=== PATIENT | male | born 1935 | race Caucasian/White ===

== ENCOUNTER → 2016-11-01 | Outpatient (CLI) | payer OTHER ==
[2010-11-24 07:46] VITALS: BP 123/73
--- NOTE | 2016-11-01 13:03 | DI ---
PA /LATERAL CHEST X-RAY, 11/01/2016 12:25 PM : Clinical History: Upper respiratory infection. Previous Exam: 12/10/2008. There is no acute soft tissue or bony abnormality. Heart size is normal. Lungs are clear. Mediastinal structures are normal. There are no pulmonary nodules. Reading: Normal chest x-ray. There has been no interval change.
== END ==
LOC: MOB RAD 12:26
PROVIDERS: ATTEND Physician Assistant
DX: J06.9 Acute upper respiratory infection, unspecified (principal)
CPT/HCPCS: 71020

== ENCOUNTER 2018-04-25 13:35 | Observation (INO) ==
[2018-04-25] MEDS ORDERED: Sodium Chloride 0.9% 1,000 ML PRIMARY IV ONE ×2 (13:58→14:04)
[2018-04-25] MEDS ORDERED: ONDANSETRON 4 MG/2 ML VIAL IVP ONE ×2 (13:58→14:36)
[2018-04-25] MEDS ORDERED: ONDANSETRON 4 MG/2 ML VIAL ONE (14:04)
[2018-04-25 14:09] LABS: BASOPHILS # (AUTO) 0.01 10*3/UL; BASOPHILS % (AUTO) 0.2 % (0-1); EOSINOPHILS # (AUTO) 0.06 10*3/UL; EOSINOPHILS % (AUTO) 0.9 % (0-8); Hemoglobin [HGB] 9.5 g/dL (14.0-18.0); LYMPHOCYTES # (AUTO) 0.75 10*3/uL; MEAN CORPUSCULAR HEMOGLOBIN 39.9 PG (27-31); MEAN CORPUSCULAR HGB CONC 33.9 g/dL (33-37); MEAN CORPUSCULAR VOLUME 117.6 FL (80-90); MEAN PLATELET VOLUME 11.6 FL (7.4-12.2); NEUTROPHILS # (AUTO) 5.61 10*3/UL; NEUTROPHILS % (AUTO) 84.3 % (50-80); RED BLOOD COUNT 2.38 10^6/uL (4.70-6.10)
[2018-04-25 14:15] LABS: BLOOD UREA NITROGEN 24 mg/dL (7-22)
[2018-04-25 14:33] LABS: PLATELET MORPHOLOGY COMMENT NORMAL MORPHOLOGY (NORM); RBC MORPHOLOGY COMMENT SEE COMMENTS (NORM); WBC MORPHOLOGY COMMENT NORMAL MORPHOLOGY (NORM)
[2018-04-25 14:35] LABS: COLOR,URINE YELLOW (Y); URINE SAMPLE TYPE CATH SPECIMEN
[2018-04-25 14:36] LABS: BILIRUBIN,URINE SMALL (NEG); CLARITY,URINE CLEAR (CLEAR); GLUCOSE, URINE (UA) NEGATIVE (NEG); OCCULT BLOOD,URINE NEGATIVE (NEG); PROTEIN,URINE 30 mg/dl (NEG); RBC,URINE 0-3 /hpf
[2018-04-25 15:01] LABS: LIPASE 49 IU/L (23-300)
--- NOTE | 2018-04-25 16:13 | EKG ---
[address] [address] Measurements Intervals [place] Rate: 62 P: 15 VA: 156 QRS: -6 QRSD: 129 T: 13 QT: 472 QTc: 477 Interpretive Statements SINUS RHYTHM WITH OCCASIONAL SUPRAVENTRICULAR PREMATURE COMPLEXES RIGHT BUNDLE BRANCH BLOCK No previous ECG available for comparison Electronically Signed On 04-25-18 16:31:11 MDT by Parker James [email or web address]
--- NOTE | 2018-04-25 16:24 | DI ---
CT Abdomen/Pelvis W Contrast 04/25/2018 2:38 PM History: vomiting Comparison: CT abdomen/pelvis 06/22/2015. Technique: Imaging was performed with a multi-detector CT scanner. Data acquisition was obtained from the dome of the diaphragm through the pubic symphysis without oral contrast and after the uneventful administration of 75 mL of Isovue intravenous contrast material. Multiplanar reformations were perfo rmed. Findings: There is bibasilar dependent atelectasis. There are multiple bilateral pulmonary nodules in the lower lobes. The largest measures approximately 7 mm. There is no dense consolidation or pleural effusion. Heart size is within normal limits with atheromatous aortic and coronary artery calcificat ions. There are aortic annular calcifications. There are surgical clips in the gallbladder fossa. There is normal CT appearance of the liver, adrena l glands, spleen, kidneys, and pancreas. There is colonic diverticulosis. Focal inflammatory strandin g is noted along the posterior aspect of the colon at the level of the proximal descending colon wher e there is a prominent diverticulum. This raises concern for acute diverticulitis. There is also bord eri thickening of the wall of the incompletely distended colon. There is no free intraperitoneal a ir or fluid. No abdominopelvic lymphadenopathy is present. Vascular structures are intact. There is n o inguinal or abdominal wall hernia. The prostate is enlarged. There is multilevel degenerative disc disease with apex left curvature of the lumbar spine. There is grade 1 anterolisthesis of L4 on L5. Impression: 1. There are findings concerning for acute diverticulitis involving the proximal descending colon. 2. Additionally, there is borderline line thickening of the wall of the incompletely distended colon. Although this could be pseudo-thickening, an infectious, inflammatory, or ischemic etiology can caus e long segment bowel wall thickening. Clinical and laboratory correlation is recommended with followu p to resolution. 3. Multiple bilateral pulmonary nodules, the largest measuring 7 mm. Fleischner Society 2017 guidelin es for management of incidentally detected pulmonary nodules is as follows: Multiple solid lung nodules 6-8 mm: Low risk: CT at 3-6 months, then consider CT at 18-24 months. High risk: CT at 3-6 months, then at 18-24 months.
--- NOTE | 2018-04-25 17:31 | PDOC ---
HPI - History of Present Illness Date of Service: 04/25/18 Time of Service: 17:50 Chief Complaint: Vomiting of one day duration History of Present Illness: This is an 82 years old male with medical history significant for history of memory issues who presented to the hospital with history of vomiting that started today he vomited like 6-7 times he said he was driving back from [place] and had stopped because of the vomiting. He said he had nausea but he denied neck pain. Because of the symptoms he came into the ER. Had a CT of the abdomen done in the ER which showed diverticulitis and also thickening or pseudo -thickening of the colon and he was admitted. Currently he denying pain is denying nausea. His son confirmed the same story. The only thing that he added is that he noticed that his dad appetite seemed to be decreased the last week or so. There is also an episode of worsening confusion last Monday. He think that there is also worsening confusion the last week or 2. The patient himself denied abdominal pain, fever. History is somewhat limited though because of patient memory problem. His nausea seemed to be resolved now. Past Medical History Medical History: 1. Memory issue probably dementia. 2. Vitamin B12 deficiency not clear whether this has been treated or not Surgical History: History of cholecystectomy Family History: Reviewed an Not Pertinent Past Social History: Lives with his in [facility], used to smoke quit many years ago, doesn't drink nor drugs. Still drives. His son has power of ip technology transactions attorney. Tobacco Use: Former Smoker In the Past 12 Months, Have Used or Abuse Any of the Following Substance: None Alcohol Use: None Medication / Allergies Home Medications: Home Medications 3 Medication Instructions Recorded Confirmed Type donepezil 5 mg tablet 5 mg PO QDAY #30 tab 04/17/18 04/25/18 Rx Allergies/Adverse Reactions: Allergies 3 Allergy/AdvReac Type Severity Reaction Status Date / Time No Known Allergies Allergy Verified 04/25/18 13:38 Review of Systems - Review of Systems All Systems: Reviewed & No Additional Complaints Except as Stated Exam - Vitals Vital Signs: Vital Signs Temperature 97.1 F Temperature Source Tympanic Pulse Rate [Pulse Oximeter] 56 Pulse Rate 67 Respiratory Rate 20 Blood Pressure [Right Arm] 127/64 Blood Pressure 104/69 Pulse Ox 98 Oxygen Delivery Method Room Air Height 5 ft 10 in Weight 165 lb 4 oz - General General Appearance: No Acute Distress, Cooperative - Head Head Exam: Normal Inspection - Eye Eye Exam: POSITIVE: Normal Appearance - ENT ENT Exam: POSITIVE: Normal Exam - Neck Neck Exam: Normal Inspection - Respiratory Respiratory Exam: POSITIVE: Clear to Auscultation - Bilaterally - Cardiovascular Cardiovascular Exam: POSITIVE: RRR - GI/Abdominal GI/Abdominal Exam: POSITIVE: Normal Bowel Sounds, Non Tender, Non Distended, Soft, No Organomegaly - Rectal Rectal Exam: POSITIVE: Deferred - External Exam: POSITIVE: Deferred Exam: POSITIVE: Deferred - Extremities Extremities Exam: POSITIVE: Normal Inspection - Back Back Exam: POSITIVE: Normal Inspection - Neurological Neurological Exam: POSITIVE: Alert, CN II-XII Intact, No Facial Droop, Speech Intact / Clear, Moves All Extremities Equally Additional Neurological Exam Details: He need that he is in the hospital could not tell me the name of the hospital or the town that he is in. Did not know the day or the month or the year. He now where he lives. He now the name of his son but he couldn't tell me the name of his grandsons. - Psychiatric Psychiatric Exam: POSITIVE: Normal Affect Results - Labs CBC and BMP: 04/25/18 13:45 04/25/18 13:45 - EKG Data -: EKG Interpreted by Me Rate: Normal EKG Shows Normal: Sinus Rhythm - EKG Data EKG Interpretation: Other (EKG showed sinus rhythm with supraventricular premature beats. There is right bundle branch block) - Imaging Status: Report Reviewed by Me (CT chest: 1. There are findings concerning for acute diverticulitis involving the proximal descending colon. 2. Additionally, there is borderline line thickening of the wall of the incompletely distended colon. Although this could be pseudo-thickening, an infectious, inflammatory, or ischemic etiology can cause long segment bowel wall thickening. Clinical and laboratory correlation is recommended with followup to resolution. 3. Multiple bilateral pulmonary nodules, the largest measuring 7 mm.) Assessment and Plan - Patient Problems (1) Diverticulitis Current Visit: Yes Status: Acute Comment: Will put him on ertapenem. Will put him on IV fluids and a clear liquid diet. Code(s): K57.92 - Diverticulitis of intestine, part unspecified, without perforation or abscess without bleeding (2) Vitamin B 12 deficiency Current Visit: No Status: Chronic Comment: He has vitamin B12 deficiency I am not sure this has been treated. Will Put him on vitamin B12. We'll check Folate level. Code(s): E53.8 - Deficiency of other specified B group vitamins
[2018-04-25] MEDS ORDERED: LIDOCAINE W/ SODIUM BICARB 0.5 ML SYR SUBD PRN (17:34)
[2018-04-25] MEDS ORDERED: DOCUSATE 100 MG CAPSULE PO PRN (17:34)
[2018-04-25] MEDS ORDERED: ONDANSETRON 4 MG/2 ML VIAL IVP PRN (17:34)
[2018-04-25] MEDS ORDERED: CALCIUM CARBONATE 500 MG (TUMS) CHEWABLE TABLET PO PRN (17:34)
[2018-04-25] MEDS ORDERED: ACETAMINOPHEN 325 MG TABLET PO PRN (17:34)
[2018-04-25] MEDS ORDERED: CYANOCOBALAMIN 1000 MCG/1 ML VIAL IM ONE (17:48)
--- NOTE | 2018-04-25 18:02 | PDOC ---
General Adult HPI - General Chief Complaint: Nausea / Vomiting / Diarrhea Stated Complaint: "does not feel well"/vomiting Date Seen by Provider: 04/25/18 Time Seen by Provider: 13:45 Source: POSITIVE: Patient, Other (Son) Exam Limitations: POSITIVE: No limitations Nurse's Notes Reviewed & Considered: Yes - History of Present Illness Initial Comment: The patient is a 82-year-old male. 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 He states he had 5-6 episodes of vomiting prior to coming to the emergency room and states he had to stop at the side of the road to throw up. He states he's not felt very well for several days. Some poorly localized abdominal discomfort. No melena, hematochezia, hematemesis, dysuria or hematuria. He states he thinks she's had an appendectomy. No fevers or chills. His , with whom he lives, has not had some similar symptoms. His has advanced Alzheimer disease. The patient has moderate dementia. Collateral history was obtained through the patient's son. Have you received a tetanus shot in the past 10 years?: Unknown Body Location Affected: REPORTS: Abdomen Timing: REPORTS: Abrupt, Intermittent Duration: <24 hours Severity: Moderate Quality: REPORTS: "Pain" (Mild poorly localized abdominal discomfort; mostly in the left upper abdomen) Context: DENIES: None, Sitting, Standing, Activity, Emotional stress, Coughing, Recent Trauma, Recent Surgery, Sleep, Rest, Lifting, Turning, Bending, Fall, Near Fall, Other Modifying Factors: improves with: Vomiting Similar Symptoms Previously: No Recent Care Received: REPORTS: Denies Any Prior Injuries Related to Current Complaint?: No - Patient Home Medications Home Medications: Home Medications donepezil 5 mg tablet 5 mg PO QDAY #30 tab 04/17/18 - Patient Allergies Allergies/Adverse Reactions: Allergies 3 Allergy/AdvReac Type Severity Reaction Status Date / Time No Known Allergies Allergy Verified 04/25/18 13:38 Past Medical History - heen HEENT History: Denies History Cardiovascular History: Denies History Respiratory History: Denies History Gastrointestinal History: Denies History Genitourinary History: Denies History Endocrine History: Denies History Musculoskeletal History: Denies History Neurological History: Dementia Blood Disorders: Denies History Psychiatric History: Denies History History of Sexually Transmitted Diseases: No Male Reproductive History: Denies History Cancer History: Denies History In Past Year Been Physically Harmed or Verbally Threatened: No History of MDRO: Unknown Tobacco Use: Former Smoker In the Past 12 Months, Have Used or Abuse Any Substance: None Significant Family History: No pertinent family hx Past Medical History Reviewed: Reviewed - No Changes ROS - Limitations ROS Limitations: No Limitations Constitution: REPORTS: Denies Symptoms Cardiovascular: REPORTS: Denies Cardiac Symptoms Respiratory: REPORTS: Denies Resp Symptoms Neurological: REPORTS: Denies Neuro Symptoms Gastrointestinal: REPORTS: Abdominal Pain (Mild vague abdominal discomfort, mostly in the left upper quadrant), Nausea, Vomitting Endocrine: REPORTS: Denies Symptoms Musculoskeletal: REPORTS: Denies MS Symptoms Genitourinary: REPORTS: Denies Symptoms Eyes: REPORTS: Denies Symptoms ENT: REPORTS: Denies Symptoms Skin: REPORTS: Denies Skin Symptoms Lympathic: REPORTS: Denies Lympathic Symptoms Immunologic: POSITIVE: Denies Symptoms Psychiatric: POSITIVE: Denies Psych Symptoms General Adult Exam - General Appearance General Appearance: POSITIVE: Alert, Cooperative, No Acute Distress, No Evidence of Trauma - HEENT HEENT: POSITIVE: Head Inspection Nml, Eyes Inspection Nml, Ears Inspection Nml, Nose Inspection Nml, Oral/Dental Inspect. Nml, Pharynx Inspect. Nml, PERRL, EOMI - Pupils Pupil Size: 3 mm: Bilateral (PERRLA) - Neck Neck: POSITIVE: Normal Inspection, Thyroid Normal - Respiratory Respiratory: POSITIVE: No Respiratory Distress, Breath Sounds Normal, Chest Non- Tender - Cardiovascular Cardiovascular: POSITIVE: Regular Rate & Rhythm, No Murmur, No Gallop, PMI Normal Peripheral Pulses: Radial (R): 2+, Radial (L): 2+ - Abdomen Abdomen: Soft: (All Quadrants), Denies Tenderness: (RLQ), (LUQ), (RUQ), No Splenomegaly: (All Quadrants), No Hepatomegaly: (All Quadrants), No Guarding: ( All Quadrants), No Rebound: (All Quadrants), No Palpable Pulse: (All Quadrants) , No Palpabale Mass: (All Quadrants), No Distention: (All Quadrants), No Rigidity: (All Quadrants), Tenderness Noted: (LLQ) (mild) Additional Abdominal Details: Abdominal examination shows bowel sounds to be active. Patient does express some discomfort on firm deep direct palpation in the left upper quadrant, with no masses, organomegaly or rebound. - Back Back: POSITIVE: Normal Inspection. 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 As Tested, Motor Normal, Sensation Normal Images - Complete Complete: 1 - Mild discomfort on firm direct palpation General Adult Progress - Results Reviewed by me Xrays/CTs/US Reviewed by me: Yes Discussed with Radiologist: Yes Radiology Findings: CT scan abdomen and pelvis with IV contrast read by radiologist as compatible with acute diverticulitis Lab Results Reviewed by Me: Yes Lab Results:: Laboratory Results 3 04/25/18 04/25/18 04/25/18 13:45 13:45 14:05 WBC 6.65 RBC 2.38 L Hgb 9.5 L Hct 28.0 L MCV 117.6 H MCH 39.9 H MCHC 33.9 RDW Std Deviation 66.1 H RDW Coeff of Isaac 16.1 H Plt Count 150 MPV 11.6 Immature Gran % (Auto) 0.3 Neut % (Auto) 84.3 H Lymph % (Auto) 11.3 [place] % (Auto) 3.0 L Eos % (Auto) 0.9 Baso % (Auto) 0.2 Immature Gran # (Auto) 0.02 Neut # (Auto) 5.61 Lymph # (Auto) 0.75 [place] # (Auto) 0.20 L Eos # (Auto) 0.06 Baso # (Auto) 0.01 WBC Morphology Comment Normal morphology Plt Morphology Comment Normal morphology RBC Morph Comment See comments Sodium 140 Potassium 3.9 Chloride 108 Carbon Dioxide 24 Anion Gap 8 BUN 24 H Creatinine 1.2 BUN/Creatinine Ratio 20.00 Glucose 157 H Calculated Osmolality 296.0 H Calcium 8.9 Total Bilirubin 0.8 AST 38 ALT 44 Alkaline Phosphatase 91 Total Protein 7.0 Albumin 4.0 Globulin 3.0 Albumin/Globulin Ratio 1.30 Amylase Lipase Ur Collection Type Cath specimen Urine Color Yellow Urine Clarity Clear Urine pH 5.0 Ur Specific Maxwell 1.026 Urine Protein 30 A Urine Glucose (UA) Negative Urine Ketones 15 Urine Occult Blood Negative Urine Nitrate Negative Urine Bilirubin Small Urine Urobilinogen 1.0 Ur Leukocyte Esterase Negative Urine RBC 0-3 Urine WBC None Ur Squamous Epith Cells None Ur Renal Epithelial Cell None Urine Crystals None Urine Bacteria None Urine Casts None Urine Mucus Moderate Urine Trichomonas None Urine Yeast None Ur Culture Indicated? Culture not set 3 04/25/18 14:37 WBC RBC Hgb Hct MCV MCH MCHC RDW Std Deviation RDW Coeff of Isaac Plt Count MPV Immature Gran % (Auto) Neut % (Auto) Lymph % (Auto) [place] % (Auto) Eos % (Auto) Baso % (Auto) Immature Gran # (Auto) Neut # (Auto) Lymph # (Auto) [place] # (Auto) Eos # (Auto) Baso # (Auto) WBC Morphology Comment Plt Morphology Comment RBC Morph Comment Sodium Potassium Chloride Carbon Dioxide Anion Gap BUN Creatinine BUN/Creatinine Ratio Glucose Calculated Osmolality Calcium Total Bilirubin AST ALT Alkaline Phosphatase Total Protein Albumin Globulin Albumin/Globulin Ratio Amylase 52 Lipase 49 Ur Collection Type Urine Color Urine Clarity Urine pH Ur Specific Maxwell Urine Protein Urine Glucose (UA) Urine Ketones Urine Occult Blood Urine Nitrate Urine Bilirubin Urine Urobilinogen Ur Leukocyte Esterase Urine RBC Urine WBC Ur Squamous Epith Cells Ur Renal Epithelial Cell Urine Crystals Urine Bacteria Urine Casts Urine Mucus Urine Trichomonas Urine Yeast Ur Culture Indicated? CBC and BMP: 04/25/18 13:45 04/25/18 13:45 EKG Interpreted/Reviewed By Me:: Yes (normal) EKG Interpretation:: POSITIVE: Normal Sinus Rhythm, Normal Rate, Normal Intervals, Normal [place], Normal QRS, Normal ST/T - Patient's Progress Pain Medication Addressed: POSITIVE: Patient Refused School/Work Release Addressed: POSITIVE: Not Applicable Re-Examine Time: 16:20 Re-Examine Comment: Patient had one episode of vomiting while in the emergency room. Emesis was checked for blood and it was Hemoccult negative. Patient hydrated with normal saline and given Zofran. Patient feels better on discharge. I discussed options of treatment with the patient and the patient's son. In view of the patient's vomiting and his radiographic diagnosis of diverticulitis, it was decided to admit the patient for further evaluation and treatment. Status: POSITIVE: Improved, Re-Examined Antibiotics Given: No - Consult Consult (If Yes, Name of Consulting MD & Time Called): Yes (Dr. Leyva, hospitalist, [id number]) Consulting MD will see pt:: POSITIVE: [place] Admit Counseled: POSITIVE: Patient, Family (Son and ), RE: Lab Results, RE: Radiology Results, RE: DX, RE: Need for F/U Patient Care Time - Estimated PCT Patient Care Time (In Minutes): 55 Vital Signs - Recent Vital Signs Vital Signs: Vital Signs (Last 8 hours) Temp Pulse Pulse Resp BP BP Pulse Ox 04/25/18 17:16 97.1 F 56 L 20 127/64 98 04/25/18 16:59 97 F 67 18 104/69 96 04/25/18 13:40 96.1 F L 67 22 126/80 98 - VS Reviewed Vital Signs Reviewed: Yes Discharge Clinical Impression: Nausea and vomiting, Diverticulitis Discharge Disposition: Admit to Inpatient Condition: Fair Date Decision to Admit to Inpatient: 04/25/18 Time Decision to Admit to Inpatient: 16:20
[2018-04-25] MEDS: Ertapenem Inj 1 GM in Sodium Chloride 0.9% 100 ML IV SCH (18:11)
[2018-04-25] MEDS: Lactated Ringers 1,000 ML PRIMARY IV SCH (18:12)
[2018-04-25 20:28] VITALS: RESP 18
[2018-04-26 04:15] VITALS: O2SAT 94
[2018-04-26] MEDS: Lactated Ringers 1,000 ML PRIMARY IV SCH (04:17)
[2018-04-26 07:35] VITALS: BP 104/52; TEMP 98.3
[2018-04-26 08:06] LABS: BASOPHILS # (AUTO) 0.02 10*3/UL; BASOPHILS % (AUTO) 0.3 % (0-1); EOSINOPHILS # (AUTO) 0.09 10*3/UL; EOSINOPHILS % (AUTO) 1.4 % (0-8); Hematocrit [HCT] 26.5 % (42.0-52.0); Hemoglobin [HGB] 9.2 g/dL (14.0-18.0); MEAN CORPUSCULAR HEMOGLOBIN 41.1 PG (27-31); MEAN CORPUSCULAR HGB CONC 34.7 g/dL (33-37); MEAN CORPUSCULAR VOLUME 118.3 FL (80-90); MEAN PLATELET VOLUME 11.1 FL (7.4-12.2); MONOCYTES % (AUTO) 4.5 % (5-15); NEUTROPHILS # (AUTO) 5.02 10*3/UL; NEUTROPHILS % (AUTO) 75.5 % (50-80); RED BLOOD COUNT 2.24 10^6/uL (4.70-6.10)
[2018-04-26 08:28] LABS: PLATELET MORPHOLOGY COMMENT NORMAL MORPHOLOGY (NORM); RBC MORPHOLOGY COMMENT NORMAL MORPHOLOGY (NORM); WBC MORPHOLOGY COMMENT NORMAL MORPHOLOGY (NORM)
[2018-04-26] MEDS ORDERED: Multivitamin Tab 1 TAB PO SCH (09:00)
[2018-04-26] MEDS ORDERED: CYANOCOBALAMIN 1000 MCG/1 ML VIAL IM ONE (09:11)
--- NOTE | 2018-04-26 09:43 | DCSUMMARY ---
Hospitalization Summary Admit Date: 04/25/2018 Discharge Date: 04/26/18 Hospital Course: Discharge diagnoses 1. Acute diverticulitis involving the proximal descending colon 2. There is borderline thickening of the wall of the incompletely distended colon. Could be pseudo-thickening, infectious, inflammatory or ischemic and in etiology. 3. Multiple bilateral pulmonary nodule needs follow-up 4. Vitamin B12 deficiency 5. Anemia likely pernicious anemia secondary to vitamin B12 deficiency, anti- intrinsic factor antibody were sent 6. Memory issues probably dementia, question related to B12 deficiency Hospital course This is a 82 years old male with medical history significant for history of memory issues who presented to the ER with history of vomiting multiple times. He said he was driving back from [place] and had stopped because of vomiting. He said he had nausea but he denied abdominal pain. Because of the symptoms he came into the ER. He had a CT of the abdomen in the ER which showed diverticulitis and also thickening or pseudo-thickening of the colon and he was admitted. When I saw him he was denying pain and was denying nausea. His son did confirm the story. he did report that his dad appetite seems to be less. And he did report an episode of confusion last Monday. His exam was not remarkable there was no abdominal tenderness. We put him on clear liquid and started him on Invanz. We did notice anemia looks like B12 deficiency anemia. He had a B12 level which was low the beginning of this month. The next day he wanted to go home his exam was unremarkable. There was no tenderness in his abdomen. He denied nausea no vomiting. he tolerated Clear liquids. We thought he could be discharged home on oral antibiotics. He need follow-up with his primary and with Dr. Barney as an outpatient. For his anemia will put him on B12 level shots. I Wrote a prescription for once a week after discharge for 4 weeks and then once a month after that. The CT did show some pulmonary nodules and I did inform his son that this need to be followed up with his primary as an outpatient. Laboratory Results 04/25/18 04/25/18 04/25/18 Range/Units 13:45 13:45 13:46 WBC 6.65 (4.8-10.8) 10^3/uL RBC 2.38 L (4.70-6.10) 10^6/uL Hgb 9.5 L (14.0-18.0) g/dL Hct 28.0 L (42.0-52.0) % MCV 117.6 H (80-90) FL MCH 39.9 H (27-31) PG MCHC 33.9 (33-37) g/dL RDW Std Deviation 66.1 H (39-50) fL RDW Coeff of Isaac 16.1 H (11.5-14.5) % Plt Count 150 (140-350) 10*3/uL MPV 11.6 (7.4-12.2) FL Immature Gran % (Auto) 0.3 (0-5) % Neut % (Auto) 84.3 H (50-80) % Lymph % (Auto) 11.3 (10-50) % [place] % (Auto) 3.0 L (5-15) % Eos % (Auto) 0.9 (0-8) % Baso % (Auto) 0.2 (0-1) % Immature Gran # (Auto) 0.02 10*3/UL Neut # (Auto) 5.61 10*3/UL Lymph # (Auto) 0.75 10*3/uL [place] # (Auto) 0.20 L (0.3-0.8) 10*3/UL Eos # (Auto) 0.06 10*3/UL Baso # (Auto) 0.01 10*3/UL WBC Morphology Comment Normal morphology (NORM) Plt Morphology Comment Normal morphology (NORM) RBC Morph Comment See comments (NORM) Sodium 140 (135-145) meq/L Potassium 3.9 (3.8-5.2) meq/L Chloride 108 (98-112) meq/L Carbon Dioxide 24 (23-33) meq/L Anion Gap 8 (5-20) BUN 24 H (7-22) mg/dL Creatinine 1.2 (0.70-1.50) mg/dL BUN/Creatinine Ratio 20.00 (6-20) Glucose 157 H (78-110) mg/dL Calculated Osmolality 296.0 H (267-292) mOsm/kg Calcium 8.9 (8.7-10.7) mg/dL Ferritin (12.00-336.70) ng/mL Total Bilirubin 0.8 (0.3-1.2) mg/dL AST 38 (21-57) IU/L ALT 44 (21-72) IU/L Alkaline Phosphatase 91 (38-126) IU/L Total Protein 7.0 (6.1-8.0) g/dL Albumin 4.0 (3.5-4.8) g/dL Globulin 3.0 (2.50-4.10) g/dL Albumin/Globulin Ratio 1.30 (1.3-2.0) mg/g Amylase (30-110) U/L Lipase (23-300) IU/L Serum Folate > 20.0 H (2.76-20.0) NG/ML Ur Collection Type Urine Color (Y) Urine Clarity (CLEAR) Urine pH (5.0-8.5) Ur Specific [place] (1.005-1.030) Urine Protein (NEG) mg/dl Urine Glucose (UA) (NEG) mg/dL Urine Ketones (NEG) Urine Occult Blood (NEG) Urine Nitrate (NEG) Urine Bilirubin (NEG) Urine Urobilinogen (0.2) EU/dL Ur Leukocyte Esterase (NEG) Urine RBC (NONE) /hpf Urine WBC (NONE) Ur Squamous Epith Cells (NONE) Ur Renal Epithelial Cell (NONE) Urine Crystals Urine Bacteria (NONE) Urine Casts (NONE) Urine Mucus (NONE) Urine Trichomonas (NONE) Urine Yeast (NONE) Ur Culture Indicated? 04/25/18 04/25/18 04/26/18 Range/Units 14:05 14:37 07:50 WBC 6.65 (4.8-10.8) 10^3/uL RBC 2.24 L (4.70-6.10) 10^6/uL Hgb 9.2 L (14.0-18.0) g/dL Hct 26.5 L (42.0-52.0) % MCV 118.3 H (80-90) FL MCH 41.1 H (27-31) PG MCHC 34.7 (33-37) g/dL RDW Std Deviation 67.8 H (39-50) fL RDW Coeff of Isaac 16.2 H (11.5-14.5) % Plt Count 117 L (140-350) 10*3/uL MPV 11.1 (7.4-12.2) FL Immature Gran % (Auto) 0.3 (0-5) % Neut % (Auto) 75.5 (50-80) % Lymph % (Auto) 18.0 (10-50) % [place] % (Auto) 4.5 L (5-15) % Eos % (Auto) 1.4 (0-8) % Baso % (Auto) 0.3 (0-1) % Immature Gran # (Auto) 0.02 10*3/UL Neut # (Auto) 5.02 10*3/UL Lymph # (Auto) 1.20 10*3/uL [place] # (Auto) 0.30 (0.3-0.8) 10*3/UL Eos # (Auto) 0.09 10*3/UL Baso # (Auto) 0.02 10*3/UL WBC Morphology Comment Normal morphology (NORM) Plt Morphology Comment Normal morphology (NORM) RBC Morph Comment Normal morphology (NORM) Sodium (135-145) meq/L Potassium (3.8-5.2) meq/L Chloride (98-112) meq/L Carbon Dioxide (23-33) meq/L Anion Gap (5-20) BUN (7-22) mg/dL Creatinine (0.70-1.50) mg/dL BUN/Creatinine Ratio (6-20) Glucose (78-110) mg/dL Calculated Osmolality (267-292) mOsm/kg Calcium (8.7-10.7) mg/dL Ferritin (12.00-336.70) ng/mL Total Bilirubin (0.3-1.2) mg/dL AST (21-57) IU/L ALT (21-72) IU/L Alkaline Phosphatase (38-126) IU/L Total Protein (6.1-8.0) g/dL Albumin (3.5-4.8) g/dL Globulin (2.50-4.10) g/dL Albumin/Globulin Ratio (1.3-2.0) mg/g Amylase 52 (30-110) U/L Lipase 49 (23-300) IU/L Serum Folate (2.76-20.0) NG/ML Ur Collection Type Cath specimen Urine Color Yellow (Y) Urine Clarity Clear (CLEAR) Urine pH 5.0 (5.0-8.5) Ur Specific [place] 1.026 (1.005-1.030) Urine Protein 30 A (NEG) mg/dl Urine Glucose (UA) Negative (NEG) mg/dL Urine Ketones 15 (NEG) Urine Occult Blood Negative (NEG) Urine Nitrate Negative (NEG) Urine Bilirubin Small (NEG) Urine Urobilinogen 1.0 (0.2) EU/dL Ur Leukocyte Esterase Negative (NEG) Urine RBC 0-3 (NONE) /hpf Urine WBC None (NONE) Ur Squamous Epith Cells None (NONE) Ur Renal Epithelial Cell None (NONE) Urine Crystals None Urine Bacteria None (NONE) Urine Casts None (NONE) Urine Mucus Moderate (NONE) Urine Trichomonas None (NONE) Urine Yeast None (NONE) Ur Culture Indicated? Culture not set 04/26/18 Range/Units 07:53 WBC (4.8-10.8) 10^3/uL RBC (4.70-6.10) 10^6/uL Hgb (14.0-18.0) g/dL Hct (42.0-52.0) % MCV (80-90) FL MCH (27-31) PG MCHC (33-37) g/dL RDW Std Deviation (39-50) fL RDW Coeff of Isaac (11.5-14.5) % Plt Count (140-350) 10*3/uL MPV (7.4-12.2) FL Immature Gran % (Auto) (0-5) % Neut % (Auto) (50-80) % Lymph % (Auto) (10-50) % [place] % (Auto) (5-15) % Eos % (Auto) (0-8) % Baso % (Auto) (0-1) % Immature Gran # (Auto) 10*3/UL Neut # (Auto) 10*3/UL Lymph # (Auto) 10*3/uL [place] # (Auto) (0.3-0.8) 10*3/UL Eos # (Auto) 10*3/UL Baso # (Auto) 10*3/UL WBC Morphology Comment (NORM) Plt Morphology Comment (NORM) RBC Morph Comment (NORM) Sodium (135-145) meq/L Potassium (3.8-5.2) meq/L Chloride (98-112) meq/L Carbon Dioxide (23-33) meq/L Anion Gap (5-20) BUN (7-22) mg/dL Creatinine (0.70-1.50) mg/dL BUN/Creatinine Ratio (6-20) Glucose (78-110) mg/dL Calculated Osmolality (267-292) mOsm/kg Calcium (8.7-10.7) mg/dL Ferritin 399.00 H (12.00-336.70) ng/mL Total Bilirubin (0.3-1.2) mg/dL AST (21-57) IU/L ALT (21-72) IU/L Alkaline Phosphatase (38-126) IU/L Total Protein (6.1-8.0) g/dL Albumin (3.5-4.8) g/dL Globulin (2.50-4.10) g/dL Albumin/Globulin Ratio (1.3-2.0) mg/g Amylase (30-110) U/L Lipase (23-300) IU/L Serum Folate (2.76-20.0) NG/ML Ur Collection Type Urine Color (Y) Urine Clarity (CLEAR) Urine pH (5.0-8.5) Ur Specific [place] (1.005-1.030) Urine Protein (NEG) mg/dl Urine Glucose (UA) (NEG) mg/dL Urine Ketones (NEG) Urine Occult Blood (NEG) Urine Nitrate (NEG) Urine Bilirubin (NEG) Urine Urobilinogen (0.2) EU/dL Ur Leukocyte Esterase (NEG) Urine RBC (NONE) /hpf Urine WBC (NONE) Ur Squamous Epith Cells (NONE) Ur Renal Epithelial Cell (NONE) Urine Crystals Urine Bacteria (NONE) Urine Casts (NONE) Urine Mucus (NONE) Urine Trichomonas (NONE) Urine Yeast (NONE) Ur Culture Indicated? Discharge suction Diet regular Activity as started Medications Current Medication(s) 3 Medication Instructions Recorded Confirmed Type donepezil 5 mg tablet 5 mg PO QDAY #30 tab 04/17/18 04/25/18 Rx Amoxicillin/Potassium Clav 1 ea PO BID #10 tab 04/26/18 Rx [Augmentin 875-125 Tablet] Cyanocobalamin Inj [Vitamin B-12 1,000 mcg IM QWEEK #6 vial 04/26/18 Rx Inj] Multivitamin Tab [Thera Tab] 1 tab PO DAILY tab 04/26/18 Rx Follow-up EP in 1-2 weeks, with Dr. Barney in 1-2 weeks Condition at discharge stable for discharge Exam - Vitals Vital Signs: Vital Signs Temperature 98.3 F Temperature Source Temporal Artery Scan Pulse Rate [Pulse Oximeter] 60 Pulse Rate 67 Respiratory Rate 18 Blood Pressure [Right Arm] 104/52 Blood Pressure 104/69 Pulse Ox 94 Oxygen Delivery Method Room Air Height 5 ft 10 in Weight 165 lb 4 oz - General General Appearance: No Acute Distress, Cooperative - Head Head Exam: Normal Inspection - Eye Eye Exam: POSITIVE: Normal Appearance - ENT ENT Exam: POSITIVE: Normal Exam - Neck Neck Exam: Normal Inspection - Respiratory Respiratory Exam: POSITIVE: Clear to Auscultation - Bilaterally - Cardiovascular Cardiovascular Exam: POSITIVE: RRR - GI/Abdominal GI/Abdominal Exam: POSITIVE: Normal Bowel Sounds, Non Tender, Non Distended, Soft, No Organomegaly - Rectal Rectal Exam: POSITIVE: Deferred - External Exam: POSITIVE: Deferred Exam: POSITIVE: Deferred - Extremities Extremities Exam: POSITIVE: Normal Inspection - Back Back Exam: POSITIVE: Normal Inspection - Neurological Neurological Exam: POSITIVE: Alert, CN II-XII Intact, No Facial Droop, Speech Intact / Clear, Moves All Extremities Equally - Psychiatric Psychiatric Exam: POSITIVE: Normal Affect Patient Problems - Patient Problem List (1) Diverticulitis Current Visit: Yes Status: Acute Code(s): K57.92 - Diverticulitis of intestine, part unspecified, without perforation or abscess without bleeding Category: Medical (2) Vitamin B 12 deficiency Current Visit: No Status: Chronic Comment: Vitamin B12 <159. Will discuss replacement with Tyson and feasibility of B12 shots. Code(s): E53.8 - Deficiency of other specified B group vitamins Category: Medical
[2018-04-26] MEDS: Ertapenem Inj 1 GM in Sodium Chloride 0.9% 100 ML IV SCH (10:45)
== END 2018-04-26 11:29 | disposition home or self-care (01) ==
LOC: ER 13:35 → MED/SURG 16:35 → INTOOBSV 16:35
PROVIDERS: ADMIT Internal Medicine; ATTEND Internal Medicine